=== PATIENT | male | born 1930 | race Two or more races ===

== ENCOUNTER 2017-01-26 07:19 | Day surgery (SDC) | payer MEDICARE, MEDICAID ==
--- NOTE | 2017-01-25 08:58 | Pre-Procedure Note/Attestation ---
Pre-Procedure Note/Attestation Complete Prior to Procedure Planned Procedure: bilateral Procedure Narrative: 1- Ptosis correction, upper lids 2- Entropion correction upper lids 3- Ectropion correction, lower lids. 4- Blepharoplasty, upper lids Indications for Procedure Pre-Operative Diagnosis: 1- Ptosis ,upper lids 2- Entropion, upper lids 3- Ectropion , lower lids . 4- Blepharochalasis and dermatochalasis upper lids Attestation I attest that I discussed the nature of the procedure; its benefits; risks and complications; and alternatives (and the risks and benefits of such alternatives ), prior to the procedure, with the patient (or the patient's legal lifeline representatives). I attest that, if there was a reasonable possibility of needing a blood transfusion, the patient (or the patient's legal lifeline representatives) was given the [facility] standardized written summary, pursuant to the [place] Blood Safety Act ([place] Health and Safety Code # 1645, as amended). I attest that I re-evaluated the patient just prior to the surgery and that there has been no change in the patient's H&P, except as documented below: DELANEY MURCIA Jan 25, 2017 08:58
[~2017-01-26] VITALS: Ht 188 cm; Wt 68.0 kg
[2017-01-26] VITALS (11 sets, daily range): BP systolic 145–175; BP diastolic 65–83
[~2017-01-26 07:19] MED LIST: Akten 3.5% 1ml Btl BOTH EYES ONE; Maxitrol Opth Oint 3.5gm BOTH EYES ONE
[2017-01-26] MEDS ORDERED: Akten 3.5% 1ml Btl ONE (07:38)
[2017-01-26] MEDS ORDERED: LYRICA50 MG ORAL (08:08)
[2017-01-26] MEDS ORDERED: HYDROCHLOROTH12.5 M2 ORAL (08:08)
[2017-01-26] MEDS ORDERED: ASPIRIN EC81 MG ORAL (08:08)
[2017-01-26] MEDS ORDERED: TERAZOSIN HCL1 MG ORAL (08:08)
[2017-01-26] MEDS ORDERED: Tobradex Opth Oint 3.5gm ONE (09:22)
[2017-01-26] MEDS ORDERED: Tetracaine 0.5% Opth Soln ONE (09:23)
[2017-01-26] MEDS ORDERED: Bupivacaine 0.75% 30ml vial INJ ONE (09:23)
[2017-01-26] MEDS ORDERED: Lidocaine 2% 20mg/ml/Epi 0.005mg/ml 20ml vial ONE (09:23)
[2017-01-26] MEDS ORDERED: Povidone-Iodine 5% opth solution ONE (09:23)
[2017-01-26] MEDS ORDERED: Glycopyrrolate 0.2mg/ml 1ml Vial ONE (09:30)
[2017-01-26] MEDS ORDERED: NS Irrig 1000ml ONE (09:30)
[2017-01-26] MEDS ORDERED: Sterile Water Irrig 1000ml IRRIG ONE (09:30)
[2017-01-26] MEDS ORDERED: Midazolam 2mg/2ml Inj ONE (09:30)
[2017-01-26] MEDS ORDERED: fentaNYL 100 mcg/2 mL IV ONE (09:30)
[2017-01-26] MEDS ORDERED: LR 1000ml ONE (09:30)
[2017-01-26] MEDS ORDERED: LR 1000ml 1,000 ML IVLG SCH (10:11)
--- NOTE | 2017-01-26 10:11 | Anethesia Preoperative Eval ---
Anesthesia Pre-op PMH/ROS General Date of Evaluation: Jan 26, 2017 Time of Evaluation: 09:24 Anesthesiologist: Indira ASA Score: ASA 3 Mallampati Score Class I : Soft palate, uvula, fauces, pillars visible Class II: Soft palate, uvula, fauces visible Class III: Soft palate, base of uvula visible Class IV: Only hard plate visible Mallampati Classification: Class II Surgeon: Robinson Diagnosis: Bilateral ptosis Surgical Procedure: Bilateral blepharoplasty Anesthesia History: none Family History: no anesthesia problems Allergies: Coded Allergies: No Known Allergies (Unverified , 01/19/17) Medications: see eMAR Past Medical History Cardiovascular: Reports: HTN, arrhythmia - simran sick sinus s-m ?, Denies: CAD, ND, other, valve dz Pulmonary: Denies: COPD, VIVEK, asthma, other Gastrointestinal/Genitourinary: 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 Exam Physician Exam Last Vital Signs Date Time Temp Pulse Resp B/P Pulse Ox O2 Delivery O2 Flow Rate FiO2 01/26/17 08:00 97.3 47 18 145/76 96 Room Air Constitutional: NAD Neurologic: CN 2-12 intact Cardiovascular: RRR Respiratory: CTA Gastrointestinal: S/NT/ND Airway Exam Mallampati Score: Class II MO: limited Neck: stiff ROM: limited Teeth: missing Dentures: no lower, no upper Anesthesia Pre-op A/P Labs see chart Studies Pre-op Studies: EKG - sinus simran Risk Assessment & Plan Assessment: ASA 3 Plan: MAC Status Change Before Surgery: No Pre-Antibiotics Drug: none KIRAN METCALF M.D. Jan 26, 2017 10:11
[2017-01-26] MEDS ORDERED: fentaNYL 100 mcg/2 mL IV PRN (10:15)
--- NOTE | 2017-01-26 11:11 | Brief Operative Note ---
Immediate Post Operative Note Operative Note Chief Complaint: Droopy eyelid, difficulty watching TV and reading Pre-op Diagnosis: 1- Ptosis ,upper lids 2- Entropion, upper lids 3- Ectropion , lower lids . 4- Blepharochalasis and dermatochalasis upper lids Procedure: 1-Upper eyelids Ptosis correction 2- Entropion correction upper lids 3- Blepharoplasty upper lids. 4- Entropion correction lower lids Post-op Diagnosis: same as pre-op Surgeon: Delaney Bowers MD Taxi Truck Driver: None Additional Surgeons: None Anesthesiologist: Dr. Jacobson Anesthesia: MAC Specimen: none Complications: none Condition: stable Estimated Blood Loss: none Drains: none Implant(s) used?: DELANEY Sarmiento Jan 26, 2017 11:11
--- NOTE | 2017-01-26 11:14 | Immediate Post-Op Evaluation ---
Immediate Post-Op Evalulation Immediate Post-Op Evalulation Procedure: Bilateral blepharoplasty Date of Evaluation: Jan 26, 2017 Time of Evaluation: 11:13 IV Fluids: 300` Blood Products: none Estimated Blood Loss: min Urinary Output: none Blood Pressure Systolic: 173 Blood Pressure Diastolic: 74 Pulse Rate: 46 Respiratory Rate: 20 O2 Sat by Pulse Oximetry: 98 Temperature (Fahrenheit): 97.6 Pain Score (1-10): 1 Nausea: No Vomiting: No Patient Status: awake, patent, none Hydration Status: adequate KIRAN METCALF M.D. Jan 26, 2017 11:14
--- NOTE | 2017-01-26 11:19 | Discharge Summary ---
Discharge Summary Discharge Summary Discharge Summary DATE OF ADMISSION:01/26/2017 DATE OF DISCHARGE:01/26/2017 REASON FOR HOSPITALIZATION:1- Ptosis upper eyelids. 2- entropion upper and lower eyelids. 3- Severe dermatochalasis bilaterally. SURGERY PERFORMED:1- Ptosis correction upper eyelids. 2- Entropion correction upper and lower eyelids. 3- Blepharoplasty upper lids. CONDITION IN THE HOSPITAL:The patient tolerated the surgery without complications. DISCHARGE CONDITION: The patient was stable at discharge. DISCHARGE MEDICATIONS: 1. Tobradex eye drop, one drop qid ou 2. Maxitrol eye ointment apply to lids bid. 3. Keflex 500 mg one PO q8h. 4- Narco 5/325 mg one po q6h PRN per pain POSTOPERATIVE ORDERS: The patient has to rest at home. No bending, No lifting, No watching Television tonight. POSTOPERATIVE FOLLOW UP: The patient will be followed in my office tomorrow morning at 7 o'clock. DELANEY MURCIA Jan 26, 2017 11:19
--- NOTE | 2017-01-26 11:45 | Pre-op HX & Phy Repo 2 SIG ---
DATE OF ADMISSION: 01/26/2017 PRESURGICAL INTERNAL MEDICINE HISTORY AND PHYSICAL REASON FOR EVALUATION: I was asked by Dr. Cortez Tomlinson, to see this 86-year-old male, who is going for elective surgery on the both eyes. The patient has ptosis both eyes. Please see full History and Physical by professional athletes coach, Dr. Cortez Bowers. The patient was evaluated. Chart was reviewed. Information obtained from daughter at bedside. The patient speak . PAST MEDICAL HISTORY/REVIEW OF SYSTEMS: Remarkable for hypertension, benign prostatic hypertrophy, history of peripheral neuropathy, and colon dysplasia. The patient denies history of stroke or seizures. No history of diabetes. No history of heart attack or chest pain. No respiratory problem and no renal failure. No history of thyroid problem or anemia. PAST SURGICAL HISTORY: Colectomy six years ago. MEDICATIONS: Present medications include baby aspirin, , hydrochlorothiazide and Lyrica. ALLERGIES: Not known. HABITS: Denies history of use of alcohol or tobacco. No street drugs. FAMILY HISTORY: Father at young age from pneumonia. Mother of old age. PHYSICAL EXAMINATION: GENERAL: Alert elderly male, not in acute distress. VITAL SIGNS: Blood pressure 145/70, temperature 97.3 degrees, pulse 47, respiration 18, and O2 saturation 96% on room air. SKIN: Clear and warm. No rashes. LYMPHATICS: Lymph nodes not enlarged. HEENT: Head, normocephalic. Ears, clear. Eyes, full description per Dr. Cortez Bowers. Mouth, clear and moist. Dentures upper and lower. NECK: No jugular distention. Carotids artery +2. Trachea midline. CHEST: No deformity or asymmetry. LUNGS: Clear. No rales or rhonchi. HEART: Sinus bradycardia 48 per minute. No murmur. No S3 or S4. ABDOMEN: Soft and benign. Liver and spleen not enlarged. EXTREMITIES: No edema. No cyanosis. Peripheral neuropathy. No edema. GENITOURINARY TRACT: History of benign prostatic hypertrophy. No CVA tenderness. No dysuria. NEUROLOGIC: Neuropathy of the legs. LABORATORY AND DIAGNOSTIC DATA: ECG is sinus bradycardia 45 per minute, right bundle-branch block. Laboratory pending. The patient ate last night 10 p.m. IMPRESSION: 1. Ptosis bilaterally. 2. Hypertension, controlled. 3. Benign prostatic hypertrophy. 4. Sinus bradycardia. 5. Right bundle-branch block. 6. Peripheral neuropathy. PLAN: Blepharoplasty bilaterally per Dr. Cortez Bowers. CONCLUSION: The patient has history of hypertension and benign prostatic hypertrophy. Vital signs stable. Blood pressure control. The patient has sinus bradycardia, rate 45 and right bundle-branch block. The patient is asymptomatic. The patient did not eat or drink from 10 p.m. yesterday. The patient's condition optimized for surgery. Thank you very much, Dr. Bowers, for privilege to participate presurgical care of this interesting patient. Christian Hernandez M.D. DR: Hayden JOB#: [id number] CC:
--- NOTE | 2017-01-26 13:23 | 48 Hour Post Anesthesia Eval ---
Post Anesthesia Evaluation Procedure: Bilateral blepharoplasty Date of Evaluation: Jan 26, 2017 Time of Evaluation: 13:22 Blood Pressure Systolic: 158 0: 76 Pulse Rate: 46 Respiratory Rate: 18 Temperature (Fahrenheit): 97.6 O2 Sat by Pulse Oximetry: 98 Airway: patent Nausea: No Vomiting: No Pain Intensity: 1 Hydration Status: adequate Cardiopulmonary Status: stable Mental Status/LOC: patient returned to baseline Follow-up Care/Observations: n/a Post-Anesthesia Complications: none Follow-up care needed: ready to discharge KIRAN METCALF M.D. Jan 26, 2017 13:23
--- NOTE | 2017-01-26 18:09 | Cardiology Report ---
APPROVED REPORT EKG Measurement Heart [id number] Sinus bradycardia Right bundle branch block Abnormal ECG
--- NOTE | 2017-01-26 21:45 | Operative Note - Dictated ---
DATE OF OPERATION: 01/26/2017 FACILITY: [facility]. SURGEON: Cortez Bowers M.D. MEAT STOCKER: None. ANESTHESIOLOGIST: Kwasi Jacobson M.D. Anesthesia: Monitored anesthesia care (MAC) plus local anesthesia with lidocaine 2% with epinephrine 1:100,000 plus Marcaine 0.75%. PREOPERATIVE DIAGNOSES: 1. Ptosis, upper lids, both eyes. 2. Entropion, upper lids. 3. Entropion, lower lids. 4. Dermatochalasis bilaterally upper lids. POSTOPERATIVE DIAGNOSES: 1. Ptosis, upper lids, both eyes. 2. Entropion, upper lids. 3. Entropion, lower lids. 4. Dermatochalasis bilaterally upper lids. SURGERY PERFORMED: 1. Ptosis correction, upper lids. 2. Entropion correction, upper lids. 3. Entropion correction, lower lids. 4. Blepharoplasty, O.U., upper lids. INDICATION FOR SURGERY: The patient is an 86-year-old gentleman with a history of diabetes, hypertension, and pseudophakia. The patient had benign prostatic hypertrophy and hypertension. He is taking Lyrica, valsartan, Flomax, gabapentin, and hydrochlorothiazide. The patient is complaining of upper droopy eyelids and a blurry vision in both eyes. He is suffering from severe blepharochalasis with ptosis, upper lids entropion, dermatochalasis, and lower lid entropion. This is a progressive skin disease with resulting change of corneal curvature, which induced astigmatism, and can cover his visual axis, which is an interruption for driving and reading and watching TV. The severity of the patient's dermatochalasis, ptosis, and entropion of upper and lower lids is clearly demonstrated in enclosed photos and the patient's visual lucio as well. The only solution for this patient is correction of all those disfigurement and anatomic changes with surgery. INFORMED CONSENT: . DESCRIPTION OF SURGERY AND FINDINGS: Following that, the patient was taken to the operation room in a stable condition. Lidocaine gel, Akten 3.5% were applied to the conjunctivae of both eyes. Following that, the upper eyelids were marked with a marking pen about 18 mm above the root of the eyelashes and 16 mm below the lower part of the eyebrows. About 23 mm of the skin was left to facilitate eye closure. IV sedation was given by the anesthesiologist, Dr. Jacobson. After adequate anesthesia and sedation had been achieved, the upper lids, eyebrow, and lower lids all were anesthetized with 2% lidocaine with epinephrine and Marcaine 0.75%, 50/50 of both. Following that, using a Bovie knife, the skin and the subdermal tissue were dissected from the orbicularis oculi muscle and excised. Then, a cut was made in the orbicularis oculi muscle and the two fat compartments were released. In the left eye, the fat compartment was small, so I did not touch it, but in the right eye, the fat compartment was sculptured conservatively. Following that, the later part of the superioris muscle was dissected to the aponeurosis of the muscle and aponeurosis of the muscle was tacked at about 6 mm and marked with stitches. Then, the palpebral fissure was compared and they were equal. Following that, with 6-0 Vicryl the muscle was stitched and the stitched was trimmed. Following that, a wedge groove was made 3 mm above the root of the upper eyelid lashes. Following that, the tarsal plate inside the groove was excised with a Vannas scissors. Following that, the lids of the groove were stitched with 6-0 Vicryl and trimmed. This way, the eyelid borders were rotated upwards and lashes were turned from downwards to upwards. Following that, I switched to the lower lids and lateral canthotomy was performed bilaterally. Tarsal slit was created and the tarsal slit was stitched through the periosteum of the lateral canthus bone with 6-0 Vicryl. Following that, the muscle was stitched and skin was stitched with 6-0 plain gut in the fashion of running stitches. The patient tolerated the surgery without complications. At the end of the surgery, Maxitrol eye ointment was applied to the wounds. Following that, the patient was transferred to the recovery room. In the recovery room, cold compresses were applied to the area. The wound was checked for bleeding. There was no bleeding. Postoperative orders and directions were given to the patient. The patient will be discharged home upon stabilization. The patient will be followed in my office tomorrow morning. Cortez Bowers M.D. DR: AHSAN JOB#: [id number] CC:
== END 2017-01-26 12:45 | disposition home or self-care (01) ==
LOC: SUR 07:19
DX: H02.403 Unspecified ptosis of bilateral eyelids (principal); H02.834 Dermatochalasis of left upper eyelid; H02.831 Dermatochalasis of right upper eyelid; H02.34 Blepharochalasis left upper eyelid; H02.31 Blepharochalasis right upper eyelid; H02.032 Senile entropion of right lower eyelid; H02.035 Senile entropion of left lower eyelid; H02.034 Senile entropion of left upper eyelid; H02.031 Senile entropion of right upper eyelid; E11.9 Type 2 diabetes mellitus without complications; N40.0 Benign prostatic hyperplasia without lower urinary tract symptoms; G62.9 Polyneuropathy, unspecified; R00.1 Bradycardia, unspecified; I45.10 Unspecified right bundle-branch block; I12.9 Hypertensive chronic kidney disease with stage 1 through stage 4 chronic kidney disease, or unspecified chronic kidney disease; N18.9 Chronic kidney disease, unspecified; K21.9 Gastro-esophageal reflux disease without esophagitis; F32.9 Major depressive disorder, single episode, unspecified; F41.9 Anxiety disorder, unspecified; M19.90 Unspecified osteoarthritis, unspecified site; Z96.1 Presence of intraocular lens; Z87.442 Personal history of urinary calculi; Z90.49 Acquired absence of other specified parts of digestive tract; Z87.19 Personal history of other diseases of the digestive system; Z79.82 Long term (current) use of aspirin
CPT/HCPCS: 15823; 67924; 93005; J2250; J3010; J3490; J7120; 94003; 94150